=== PATIENT | female | born 1985 | race Two or more races ===

== ENCOUNTER 2024-08-15 12:55 | Inpatient (IN) | payer MEDICAID, OTHER ==
[~2024-08-15] VITALS: Ht 157.5 cm; Wt 61.0 kg
--- NOTE | 2024-08-15 13:13 | ED.PDOC ---
HPI Comments HPI: This is a 39 year old female BIBA presenting to the ED with chief complaint of dizziness and bradycardia. EMS reports that the patient was following up at an oncology clinic due to having recent blood work showing low platelets, however, she had been noted by the clinic to be bradycardic at 45 bpm, calling 911 for assistance. EMS relays that the patient has been experiencing dizziness with associated weakness since yesterday. EMS states that they provided the patient 1mg of Atropine and 500cc's of IV normal saline with her HR now improving to 109 bpm. Patient notes that she is not on chemotherapy and there is no diagnosis of cancer at this time. Patient denies any chest pain, SOB, N/V, numbness, tingling, or syncope. Initial Vitals BP: 144/90 HR: 90 RR: 18 O2 Sat: 98% Temp: 98.8F Past Medical history: Lupus, ITP, thrombocytopenia Past Surgical history: Appendectomy, Back surgery Medications: Prednisone, Nifedipine, Fluoxetine, Pantoprazole Social History: Denies smoking, ETOH, and drug use. Allergies: NKDA HPI: Poor Historian. REVIEW OF SYSTEMS: CONSTITUTIONAL: Denies acute: fever, diaphoresis, chills, HEAD: Denies acute: headache, photophobia Eyes: Denies acute: Double vision, vision loss, eye pain, eye discharge. EARS: Denies acute: tinnitus, hearing loss, ear discharge, ear pain, THROAT: Denies acute: sore throat, swelling, difficulty swallowing , pain with swallowing, change in voice. NECK: Denies acute: neck pain, neck swelling, stiff neck. HEART: Denies acute : chest pain, palpitations, LUNGS: Denies acute: SOB, wheezing, cough, hemoptysis ABDOMEN: Denies acute: abdominal pain, Nausea, Vomiting, diarrhea, melena , hematemesis, hematochezia SKIN: Denies acute: rash, redness, lesions, itchiness. EXTREMITIES: Denies acute: calf pain, numbness, tingling, weakness, denies pain in extremity. Denies acute: Low back pain. Neuro: Denies acute: focal neurological deficit, motor or sensory focal neurological deficit, tremors, seizure like activity, confusion, change in mental status, loss of bowel or bladder function, cauda equina like symptoms. : Denies acute: dysuria, hematuria, flank pain, increase in urinary frequency. PSYCH: Denies acute: hallucination, suicidal ideation, homicidal ideation. FEMALE: Denies acute: abnormal vaginal bleeding, foul odor, unusual discharge. PHYSICAL EXAM: General: ---no-----acute distress, awake and alert. Head: normocephalic, atraumatic. Neck: supple, trachea is midline, no swelling. Throat: Normal phonation. Eyes:, no erythema, no purulent discharge, no proptosis, no icterus. Heart: Slight regular tachycardia after atropine was given by EMS, no significant murmur appreciated. Lungs: no apparent respiratory distress, Able to speak in full sentences. No wheezing, no rhonchi, no crackles. No stridors Clear to auscultation bilaterally. Abdomen: non tender to palpation, non distended, soft, no guarding, no rebound, + bowel sounds. Neuro: Awake, Alert, oriented to name, self, situation, follows commands GCS=15. Speech is normal. Skin: no petechia, no purpura, no cyanosis, non-pale, not jaundice. Lower extremities: --no - Pitting edema no deformity, no focal swelling, no calf TTP. Makes eye contact. moves all four extremities. Face: no apparent facial droop. ED COURSE: DISCLAIMER: This medical document was created using an electronic medical record system with voice recognition software and computerized dictation system. Although this document has been carefully reviewed, there might still be some phonetic and typographical errors. Occasional wrong-word or "sound-alike" substitutions may have occurred due to the inherent limitations of voice recognition software. These areas are purely typographical due to imperfections of the software programs and do not reflect any compromise in the patient's medical care. Please read the chart carefully and recognize, using context, where these substitutions have occurred. Time Seen by MD: 13:10 Reviewed Notes: Medications, Allergies Allergies: Coded Allergies: NO KNOWN ALLERGIES (Unverified , 08/15/24) Home Meds Reported Medications Elagolix Sodium (Orilissa) 150 Mg Tab, PO 08/15/24 Fluoxetine Hcl (Fluoxetine Hcl) 10 Mg Tab, 1 CAP PO DAILY 08/15/24 Pantoprazole Sodium Sesquihydr (Pantoprazole Sodium Dr) 40 Mg Tab, 1 TAB PO DAILY 08/15/24 Prednisone (Prednisone) 20 Mg Tab, 2 PO BID 08/15/24 Information Source: Patient, Emergency Med Personnel Mode of Arrival: EMS Was a procedure done? Was a procedure done?: No X-Ray, Labs, Meds, VS Vital Signs Date Time Temp Pulse Resp B/P (MAP) Pulse Ox O2 Delivery O2 Flow Rate FiO2 08/15/24 16:49 98.4 59 16 128/76 (93) 100 98.4 08/15/24 16:43 71 19 97 Room Air* 0 21 08/15/24 13:08 103 08/15/24 13:05 98.8 90 18 144/90 (108) 98 98.8 Lab Test 08/15/24 16:13 08/15/24 14:20 08/15/24 14:09 08/15/24 13:13 Range/Units Troponin I High Sensitivity 9 8 6 </=34 ng/L Urine Color Colorless Yellow Urine Clarity Clear Clear Urine pH 6.5 5.0-9.0 Urine Specific [place] 1.003 1.001-1.035 Urine Protein Negative Negative Urine Ketones Negative Negative Urine Blood Negative Negative /uL Urine Nitrite Negative Negative Urine Bilirubin Negative Negative Urine Urobilinogen Normal Negative mg/dL Urine Leukocyte Esterase Negative Negative /uL Urine RBC 2 0 - 4 /hpf Urine Microscopic WBC < 1 0-5 /HPF Urine Squamous Epithelial Cells Few <5 /hpf Urine Bacteria Mod H None Seen /hpf Urine Glucose Normal Normal mg/dL Urine Test Negative Negative White Blood Count 8.5 4.4-10.8 10^3/uL Red Blood Count 4.97 4.0-5.20 10^6/uL Hemoglobin 14.1 12.2-16.2 g/dL Hematocrit 39.7 36.0-46.0 % Mean Corpuscular Volume 79.9 L 80.0-100.0 fL Mean Corpuscular Hemoglobin 28.5 28.0-32.0 pg Mean Corpuscular Hemoglobin Concent 35.7 32.0-36.0 g/dL Red Cell Distribution Width 14.0 11.8-14.3 % Platelet Count 37 L 140-450 10^3/uL Mean Platelet Volume 9.5 6.9-10.8 fL Neutrophils (%) (Auto) 78.1 37.0-80.0 % Lymphocytes (%) (Auto) 13.5 10.0-50.0 % Monocytes (%) (Auto) 6.6 0.0-12.0 % Eosinophils (%) (Auto) 1.3 0.0-7.0 % Basophils (%) (Auto) 0.5 0.0-2.0 % Neutrophils # (Auto) 6.6 1.6-8.6 10 ^3/uL Lymphocytes # (Auto) 1.1 0.4-5.4 10 ^3/uL Monocytes # (Auto) 0.6 0-1.3 10 ^3/uL Eosinophils # (Auto) 0.1 0-0.8 10 ^3/uL Basophils # (Auto) 0 0-0.2 10 ^3/uL Nucleated Red Blood Cells 0.1 % Platelet Estimate Decreased Microcytosis Slight Sodium Level 142 136-145 mmol/L Potassium Level 3.8 3.5-5.1 mmol/L Chloride Level 107 98-107 mmol/L Carbon Dioxide Level 26 20-31 mmol/L Anion Gap 9 5-15 Blood Urea Nitrogen < 5 L 9-23 mg/dL Creatinine 0.60 0.550-1.02 mg/dL Glomerular Filtration Rate Calc 116 >90 mL/min BUN/Creatinine Ratio 8.3 L 10.0-20.0 Serum Glucose 87 74-106 mg/dL Lactic Acid Level 0.9 0.4-2.0 mmol/L Calcium Level 8.7 8.7-10.4 mg/dL Total Bilirubin 0.5 0.2-1.0 mg/dL Aspartate Amino Transferase (AST) 31 13-40 U/L Alanine Aminotransferase (ALT) 33 7-40 U/L Alkaline Phosphatase 87 46-116 U/L Total Protein 5.8 5.7-8.2 g/dL Albumin 3.8 3.2-4.8 g/dL Current Medications Medications (Trade) Dose Ordered Sig/Tyler Route Start Time Stop Time Status Last Admin Sodium Chloride 1,000 ml @ 1,000 mls/hr Q1H ONCE IV 08/15/24 13:15 08/15/24 14:14 DC 08/15/24 16:43 [facility] [id number] [place] [id number] Ph: [phone] DIAGNOSTIC IMAGING Diagnostic Imaging Report : [id number] Signed PATIENT: SUZY MARTINES ACCT: [id number] UNIT: [id number] : 1985 LOC: ER ROOM / BED: / AGE / SEX: 39 / F ADM STATUS: REG ER SERVICE 1303 ORDERING PHYSICIAN: CLEVE BERRIOS DO PROCEDURE(s): CXRP - CHEST PORTABLE REASON: cliff/dizzy/weak ORDER NUMBER(s): [id number], ACCESSION NUMBER(s): [id number] INDICATION: cliff/dizzy/weak TECHNIQUE: Frontal view of the chest. COMPARISON: None FINDINGS: . The heart and mediastinal contours are grossly unremarkable. There is no evidence of pleural disease. The lungs are clear. The bony structures of the chest are intact without fracture. IMPRESSION: 1. No evidence of acute disease. ATED BY: FLY WALLIS MD DICTATED DATE/TIME: 08/15/241511 SIGNED BY: FLY WALLIS MD SIGNED DATE/TIME: 08/15/24 151 CC: Time of 1ST Reevaluation: 14:10 Reevaluation 1ST: Unchanged Patient Education/Counseling: Diagnosis, Treatment Family Education/Counseling: No Family Present Departure 1 Departure Time of Disposition: 15:09 Impression: Primary Impression: Bradycardia Disposition: ADMITTED INPATIENT Admit to: [facility] Condition: Stable Discharged With: Self Critical Care Note Critical Care Time?: No Heart Score Heart Score: Heart Score Response (Comments) Value History Moderate Suspicious 1 EKG Normal 0 Age <45 0 Risk Factors No known risk factors 0 Troponin Normal limit 0 Total 1 I personally scribed for CLEVE BERRIOS DO ([email or web address]) on 08/15/24 at 13:13. Electronically submitted by Cordell Hairston ([email or web address]). I personally scribed for CLEVE BERRIOS DO ([email or web address]) on 08/15/24 at 14:38. Electronically submitted by Cordell Hairston ([email or web address]). I personally scribed for CLEVE BERRIOS DO ([email or web address]) on 08/15/24 at 20:33. Electronically submitted by Cordell Hairston ([email or web address]). CLEVE BERRIOS DO Aug 15, 2024 13:13
[2024-08-15 13:31] LABS: Mean Corpuscular Volume 79.9 fL (80.0-100.0)
[2024-08-15 13:33] LABS: Hematocrit 39.7 % (36.0-46.0); Hemoglobin 14.1 g/dL (12.2-16.2); Mean Corpuscular Hemoglobin 28.5 pg (28.0-32.0); Nucleated Red Blood Cells % 0.1 %
[2024-08-15 13:46] LABS: Alanine Aminotransferase 33 U/L (7-40); Albumin 3.8 g/dL (3.2-4.8); Alkaline Phosphatase 87 U/L (46-116); Anion Gap 9 (5-15); BUN/Creatinine Ratio 8.3 (10.0-20.0); Bilirubin, Total 0.5 mg/dL (0.2-1.0); Blood Urea Nitrogen < 5 mg/dL (9-23); Calcium 8.7 mg/dL (8.7-10.4); Carbon Dioxide 26 mmol/L (20-31); Chloride 107 mmol/L (98-107); Glucose 87 mg/dL (74-106); Potassium 3.8 mmol/L (3.5-5.1); Sodium 142 mmol/L (136-145); Total Protein 5.8 g/dL (5.7-8.2)
[2024-08-15 14:51] LABS: Urine Protein, UAD Negative (Negative)
--- NOTE | 2024-08-15 15:15 | DVH ---
INDICATION: cliff/dizzy/weak TECHNIQUE: Frontal view of the chest. COMPARISON: None FINDINGS: . The heart and mediastinal contours are grossly unremarkable. There is no evidence of pleural disea se. The lungs are clear. The bony structures of the chest are intact without fracture. IMPRESSION: 1. No evidence of acute disease.
[2024-08-15 16:43] VITALS: PULSE 71; RESP 19; O2SAT 97
[2024-08-15] MEDS: SODIUM CHLORIDE 0.9% 1,000 ML IV ONE (16:43)
[2024-08-15] MEDS ORDERED: NITROGLYCERIN 0.4 MG SL TAB SL PRN (17:30)
[2024-08-15] MEDS ORDERED: MORPHINE SULFATE INJ 2 MG/ml SYRG IV PRN (17:30)
[2024-08-15] MEDS ORDERED: FLUO10TA18 PO (17:38)
[2024-08-15] MEDS ORDERED: PANT40TA57 PO (17:38)
[2024-08-15] MEDS ORDERED: ELAG150T PO (17:38)
[2024-08-15] MEDS ORDERED: PRED20TA2 PO (17:38)
--- NOTE | 2024-08-15 17:44 | DVHHP2 ---
History of Present Illness Reason for Visit: Dizziness with weakness History of Present Illness Nubia Robbins is a 39-year-old female with past medical history of lupus, ITP, appendectomy, back surgery, and who presents to the ED with dizziness and weakness x2 days. Patient states that the time she was driving. She also reports that she has been compliant with her medications. She reports that she does not use illicit drugs, uses tobacco, or drinks alcohol. Patient denies chest pain, shortness of breath, fever, chills, lightheadedness, urinary symptoms, abdominal pain, nausea, vomiting, diarrhea, recent sick contacts, recent travels, recent ingestion of spoiled food, or recent trauma or injury. Past Medical History Lupus ITP Past Surgical History: Appendectomy, , Other (Back surgery) Family History: Hypertension, Other (Dad had [place] and . Mom with hypertension.) Smoke: No ALCOHOL: none Drugs: None Lives: with Family Domestic Violence: Neg Review of Systems Constitutional: Yes: Weakness, Other (Dizziness) Allergies: Coded Allergies: NO KNOWN ALLERGIES (Unverified , 08/15/24) Medications Current Medications Medications Dose Ordered Sig/Tyler Route Start Time Stop Time Status Last Admin Dose Admin Ondansetron HCl 4 mg Q4HP PRN IV 08/15/24 17:30 UNV Acetaminophen 650 mg Q6HP PRN PO 08/15/24 17:30 UNV Nitroglycerin 0.4 mg Q5MINP PRN SL 08/15/24 17:30 UNV Morphine Sulfate 2 mg Q30M PRN IV 08/15/24 17:30 UNV Exam Vital Signs Vital Signs Date Time Temp Pulse Resp B/P (MAP) Pulse Ox O2 Delivery O2 Flow Rate FiO2 08/15/24 16:49 98.4 59 16 128/76 (93) 100 98.4 08/15/24 16:43 Room Air* 0 21 General Appearance: Alert, Oriented X3, Cooperative, No acute distress HEENT: Atraumatic, PERRLA, EOMI, Mucous membr. moist/pink Respiratory: Normal air movement Cardiovascular: Normal S1, No murmurs Abdominal: Normal bowel sounds, Soft, No tenderness Extremities: No clubbing, No cyanosis, No edema, Normal pulses Skin: No significant lesion Neuro: Normal speech, Strength at 5/5 X4 ext, Normal tone, Sensation intact Psych/Mental Status: Mental status NL, Mood NL Labs/Xrays Labs Test 08/15/24 16:13 08/15/24 14:20 08/15/24 13:13 Range/Units Troponin I High Sensitivity 9 </=34 ng/L Urine Color Colorless Yellow Urine Clarity Clear Clear Urine pH 6.5 5.0-9.0 Urine Specific [place] 1.003 1.001-1.035 Urine Protein Negative Negative Urine Ketones Negative Negative Urine Blood Negative Negative /uL Urine Nitrite Negative Negative Urine Bilirubin Negative Negative Urine Urobilinogen Normal Negative mg/dL Urine Leukocyte Esterase Negative Negative /uL Urine RBC 2 0 - 4 /hpf Urine Microscopic WBC < 1 0-5 /HPF Urine Squamous Epithelial Cells Few <5 /hpf Urine Bacteria Mod H None Seen /hpf Urine Glucose Normal Normal mg/dL Urine Test Negative Negative White Blood Count 8.5 4.4-10.8 10^3/uL Red Blood Count 4.97 4.0-5.20 10^6/uL Hemoglobin 14.1 12.2-16.2 g/dL Hematocrit 39.7 36.0-46.0 % Mean Corpuscular Volume 79.9 L 80.0-100.0 fL Mean Corpuscular Hemoglobin 28.5 28.0-32.0 pg Mean Corpuscular Hemoglobin Concent 35.7 32.0-36.0 g/dL Red Cell Distribution Width 14.0 11.8-14.3 % Platelet Count 37 L 140-450 10^3/uL Mean Platelet Volume 9.5 6.9-10.8 fL Neutrophils (%) (Auto) 78.1 37.0-80.0 % Lymphocytes (%) (Auto) 13.5 10.0-50.0 % Monocytes (%) (Auto) 6.6 0.0-12.0 % Eosinophils (%) (Auto) 1.3 0.0-7.0 % Basophils (%) (Auto) 0.5 0.0-2.0 % Neutrophils # (Auto) 6.6 1.6-8.6 10 ^3/uL Lymphocytes # (Auto) 1.1 0.4-5.4 10 ^3/uL Monocytes # (Auto) 0.6 0-1.3 10 ^3/uL Eosinophils # (Auto) 0.1 0-0.8 10 ^3/uL Basophils # (Auto) 0 0-0.2 10 ^3/uL Nucleated Red Blood Cells 0.1 % Platelet Estimate Decreased Microcytosis Slight Sodium Level 142 136-145 mmol/L Potassium Level 3.8 3.5-5.1 mmol/L Chloride Level 107 98-107 mmol/L Carbon Dioxide Level 26 20-31 mmol/L Anion Gap 9 5-15 Blood Urea Nitrogen < 5 L 9-23 mg/dL Creatinine 0.60 0.550-1.02 mg/dL Glomerular Filtration Rate Calc 116 >90 mL/min BUN/Creatinine Ratio 8.3 L 10.0-20.0 Serum Glucose 87 74-106 mg/dL Lactic Acid Level 0.9 0.4-2.0 mmol/L Calcium Level 8.7 8.7-10.4 mg/dL Total Bilirubin 0.5 0.2-1.0 mg/dL Aspartate Amino Transferase (AST) 31 13-40 U/L Alanine Aminotransferase (ALT) 33 7-40 U/L Alkaline Phosphatase 87 46-116 U/L Total Protein 5.8 5.7-8.2 g/dL Albumin 3.8 3.2-4.8 g/dL INDICATION: cliff/dizzy/weak TECHNIQUE: Frontal view of the chest. COMPARISON: None FINDINGS: . The heart and mediastinal contours are grossly unremarkable. There is no evidence of pleural disease. The lungs are clear. The bony structures of the chest are intact without fracture. IMPRESSION: 1. No evidence of acute disease. SEPSIS Sepsis Screen Date sepsis recognized/suspect: Aug 15, 2024 Time Sepsis recognized/suspect: 1305 Recent Procedure: No On Antibiotic Therapy: No Respiratory Rate >20: No Heart Rate >90: No Temp<36 C (96.8 F) or >38.3 C: No SBP <90 or MAP <65 mmHG: No New Acute Mental Status Change: No Is the patient on CPAP, BIPAP,: No Physician Orders Traffic Personnel Supervisor (08/15/24 ) Chest Portable (08/15/24 13:03) Electrocardigram (08/15/24 13:03) Head Without Contrast (08/15/24 17:24) Echo 2d Mode Cardiac Dop (08/15/24 17:24) Orthostatic Vital Signs (08/15/24 17:24) Drug Screen (08/15/24 17:24) Admit (08/15/24 17:24) Allergies (08/15/24:24) Code Status (08/15/24:24) Ondansetron Hcl (Zofran) (08/15/24 17:30) Complete Blood Count (08/16/24 04:00) Comprehensive Metabolic Panel (08/16/24 04:00) Cardiac Diet-2gna,Lofat,Lochol (08/15/24 Dinner) Acetaminophen Tablet (Tylenol Tablet) (08/15/24 17:30) Sequential Compression Device (08/15/24 ) Nitroglycerin Sublingual (Ntrostat Subli (08/15/24 17:30) Morphine Sulfate Injection (08/15/24:30) Stat Ekg For Chest Pain (08/15/24:) Notify Of Changes From Base (08/15/24:) Fur Liner For 24 Hours (08/15/24:24) Emergency Dysrhythmia Protocol (08/15/24:) Rhythm Strips Once Every Shift (08/15/24:24) Oxygen By Nasal Cannula (08/15/24:24) Fluoxetine Capsule (Prozac Capsule) (08/16/24 10:00) Pantoprazole Tablet (Protonix Tablet) (08/16/24 10:00) Prednisone Tablet (08/15/24 22:00) Vital Signs Date Time Temp Pulse Resp B/P (MAP) Pulse Ox O2 Delivery O2 Flow Rate FiO2 08/15/24 16:49 98.4 59 16 128/76 (93) 100 98.4 08/15/24 16:43 71 19 97 Room Air* 0 21 08/15/24 13:08 103 08/15/24 13:05 98.8 90 18 144/90 (108) 98 98.8 Laboratory Tests Test 08/15/24 13:13 Lactic Acid Level 0.9 mmol/L (0.4-2.0) White Blood Count 8.5 10^3/uL (4.4-10.8) Medications Medications Dose Ordered Sig/Tyler Route Start Time Stop Time Status Last Admin Dose Admin Sodium Chloride 1,000 ml @ 1,000 mls/hr Q1H ONCE IV 08/15/24 13:15 08/15/24 14:14 DC 08/15/24 16:43 1,000 MLS/HR Assessment/Plan Assessment/Plan Assessment Autonomic imbalance Sinus bradycardia History of lupus History of ITP History of appendectomy History of back surgery History of Plan Admit to tele NS 1 L given in ED RBC morphology Troponin noted EKG HCG noted Chest x-ray noted UA Troponin Lactic level Echo ordered CT head ordered Orthostatics UDS Diet Home medications reconciled DVT prophylaxis-not indicated patient ambulating PUD prophylaxis-PPIs Discussed plan of care with patient and nurse [id number] Preventive counseling healthy eating habits, physical activity, and regular checkups Plan discussed with: Patient My Orders Orders - ANDREWKATHI KNOWLEDGE ARCHITECT Procedure Category Date Status Time Head Without Contrast CT 08/15/24 Logged 17:24 Echo 2d Mode Cardiac US 08/15/24 Logged DOP 17:24 Orthostatic Vital ORDERS 08/15/24 Transmitted Signs 17:24 Drug Screen LAB 08/15/24 Logged 17:24 Admit ADMIT 08/15/24 Transmitted 17:24 Allergies MYRANDA 08/15/24 In Process 17:24 Code Status CODE 08/15/24 Transmitted 17:24 Ondansetron Hcl PHA 08/15/24 Logged (Zofran) 17:30 Complete Blood Count LAB 08/16/24 Verified 04:00 Comprehensive LAB 08/16/24 Verified Metabolic Panel 04:00 Cardiac DIET 08/15/24 Transmitted Diet-2gna,Lofat,Lochol Dinner Acetaminophen Tablet PHA 08/15/24 Logged (Tylenol Tablet) 17:30 Sequential MYRANDA 08/15/24 In Process Compression Device Nitroglycerin PHA 08/15/24 Logged Sublingual (Ntrostat 17:30 Morphine Sulfate PHA 08/15/24 Logged Injection 17:30 Stat Ekg For Chest [facility] 08/15/24 In Process Pain 17:24 Notify Of Changes [facility] 08/15/24 In Process From Base 17:24 Fur Liner For [facility] 08/15/24 In Process 24 Hours 17:24 Emergency Dysrhythmia [facility] 08/15/24 In Process Protocol 17:24 Rhythm Strips Once [facility] 08/15/24 In Process Every Shift 17:24 Oxygen By Nasal RT 08/15/24 Transmitted Cannula 17:24 Fluoxetine Capsule PHA 08/16/24 Transmitted (Prozac Capsule) 10:00 Pantoprazole Tablet PHA 08/16/24 Transmitted (Protonix Tablet) 10:00 Prednisone Tablet PHA 08/15/24 Transmitted 22:00 Date of Service: Aug 15, 2024 Billing Provider: KATHI MORALES Common Visit Codes: 37162-CHOAQIZ INP/OBS CARE (HIGH) Secondary Visit Codes: [id number] COUNSELING IND KATHI MORALES Aug 15, 2024 17:44
--- NOTE | 2024-08-15 18:14 | DVH ---
EXAM: CT HEAD WITHOUT CONTRAST INDICATION: dizziness TECHNIQUE: CT of the head without intravenous contrast. Radiation Dose : 1. Head: CT Dose: CTDI volume is 57.3 mGy. Dose-length product is 1044 mGy*cm The dose indicators for CT are the volume Computed Tomography (CT) Dose Index (CTDIvol) and the Dose Length Product (DLP), and are measured in units of mGy and mGy-cm, respectively. These indicators are not patient dose, but values generated from the CT scanner acquisition factors. The report includes radiation exposure data for exposures received during this examination. COMPARISON: None FINDINGS: There is no evidence of acute intracranial hemorrhage, extra-axial collection, mass effect, midline s hift, herniation or hydrocephalus. The ventricles, sulci and cisterns are age appropriate. The ambriz-white differentiation is intact. Patchy periventricular and subcortical white matter hypoattenuation is nonspecific but may be related to small vessel ischemic disease. The visualized paranasal sinuses and mastoid air cells are clear. The surrounding soft tissues and osseous structures are unremarkable. IMPRESSION: 1. No acute intracranial abnormality. Radiation optimization: All CT scans at this facility use at least one of these dose optimization samson hniques: automated exposure control mA and/or kV adjustment per patient size (includes targeted exam s where dose is matched to clinical indication) or iterative reconstruction.
[2024-08-15] MEDS: ACETAMINOPHEN 325 MG TAB PO PRN (20:34)
[2024-08-15] MEDS: ONDANSETRON HCL 4 MG/2 ML VIAL IV PRN (20:34)
[2024-08-15] MEDS: predniSONE 20 MG TAB PO SCH (22:37)
[2024-08-15 23:06] LABS: Amphetamine Screen, Urine Neg (NEGATIVE); Barbiturate Scree,Urine Neg (NEGATIVE); Benzodiazephine Screen, Urine Neg (NEGATIVE); Cannabinoid Screen, Urine Neg (NEGATIVE); Cocaine Screen, Urine Neg (NEGATIVE); Opiate Scree,Urine Neg (NEGATIVE); Phencyclidine Screen, Urine Neg (NEGATIVE)
[2024-08-16] VITALS (9 sets, daily range): BP systolic 112–128; BP diastolic 50–83; PULSE 50–88; RESP 16–18; TEMP 98–98.3; O2SAT 94–100
[2024-08-16 06:06] LABS: Hematocrit 38.1 % (36.0-46.0); Hemoglobin 13.4 g/dL (12.2-16.2); Nucleated Red Blood Cells % 0.0 %
[2024-08-16 06:10] LABS: Alanine Aminotransferase 34 U/L (7-40); Alkaline Phosphatase 90 U/L (46-116); Anion Gap 9 (5-15); Bilirubin, Total 0.5 mg/dL (0.2-1.0); Carbon Dioxide 24 mmol/L (20-31); Mean Corpuscular Hemoglobin 28.3 pg (28.0-32.0); Mean Corpuscular Volume 80.5 fL (80.0-100.0); Potassium 4.2 mmol/L (3.5-5.1); Sodium 141 mmol/L (136-145)
[2024-08-16 06:14] LABS: BUN/Creatinine Ratio 8.8 (10.0-20.0); Blood Urea Nitrogen < 5 mg/dL (9-23); Calcium 8.4 mg/dL (8.7-10.4); Chloride 108 mmol/L (98-107); Glucose 127 mg/dL (74-106); Total Protein 5.7 g/dL (5.7-8.2)
[2024-08-16 06:50] LABS: Albumin 3.8 g/dL (3.2-4.8)
--- NOTE | 2024-08-16 07:18 | ECG ---
[facility] Test Date: 2024-08-15 Test Time: 13:08:19 Pat Name: SUZY MARTINES Department: ED Room: 0296T A Gender: F Orthoptist: KANE : 1985 Requested By: CLEVE BERRIOS Order Number: [id number] Reading MD: Willem De Dios Measurements Intervals [place] Rate: 103 P: 47 NE: 144 QRS: 78 QRSD: 99 T: -48 QT: 338 QTc: 443 Interpretive Statements Sinus tachycardia Nonspecific repol abnormality, diffuse leads Baseline wander in lead(s) V6 Electronically Signed On 08-19-2024 18:30:36 PDT by Willem De Dios Please click the below link to view image of tracing.
[2024-08-16] MEDS: PANTOPRAZOLE 40 MG TAB PO SCH (07:52)
--- NOTE | 2024-08-16 15:38 | DVHPN2 ---
Subjective Patient admitted for apparent bradycardia overnight. Currently her heart rate in the 50s to 70s range. Patient remains completely asymptomatic. 2D echocardiogram is pending. Changes from previous H/P or p: No Changes Objective Vitals Vital Signs Date Time Temp Pulse Resp B/P (MAP) Pulse Ox O2 Delivery O2 Flow Rate FiO2 08/16/24 13:00 98.1 58 18 128/62 (84) 100 98.1 08/16/24 08:00 Room Air* 0 21 Intake/Output Intake and Output 08/16/24 07:00 Intake Total 1400 ml Output Total 0 ml Balance 1400 ml Intake Oral 400 ml IV Total 1000 ml Output Urine Total 0 ml Exam Alert awake oriented x3. Comfortable in bed without distress. HEENT neck supple no JVD. Heart regular rate and rhythm S1-S2. No murmurs. Lungs fair air movement without rales wheezes. Abdomen soft nontender positive bowel sounds. Extremities no edema positive pulses. Neurologic no focal deficits. Medications Current Medications Medications Dose Ordered Sig/Tyler Route Start Time Stop Time Status Last Admin Dose Admin Ondansetron HCl 4 mg Q4HP PRN IV 08/15/24 17:30 08/15/24 20:34 4 MG Acetaminophen 650 mg Q6HP PRN PO 08/15/24 17:30 08/15/24 20:34 650 MG Nitroglycerin 0.4 mg Q5MINP PRN SL 08/15/24 17:30 Morphine Sulfate 2 mg Q30M PRN IV 08/15/24 17:30 Fluoxetine HCl 10 mg DAILY PO 08/16/24 10:00 08/16/24 08:41 10 MG Pantoprazole Sodium 40 mg DAILY@0700 PO 08/16/24 07:00 08/16/24 07:52 40 MG Prednisone 20 mg BID PO 08/15/24 22:00 08/16/24 08:41 20 MG Hydroxychloroquine Sulfate 200 mg DAILY PO 08/15/24 17:45 08/16/24 08:41 200 MG Laboratory Results Laboratory Tests 08/16/24 04:30 Chemistry Test 08/16/24 04:30 Albumin 3.8 g/dL (3.2-4.8) Calcium Level 8.4 mg/dL (8.7-10.4) L Total Protein 5.7 g/dL (5.7-8.2) LFT Test 08/16/24 04:30 Alanine Aminotransferase (ALT) 34 U/L (7-40) Alkaline Phosphatase 90 U/L (46-116) Aspartate Amino Transferase (AST) 35 U/L (13-40) Total Bilirubin 0.5 mg/dL (0.2-1.0) HgA1c, TSH Test 08/16/24 04:30 Thyroid Stimulating Hormone (TSH) 0.45 uIU/mL (0.55-4.78) L Urinalysis Test 08/15/24 14:20 Urine Color Colorless (Yellow) Urine Clarity Clear (Clear) Urine pH 6.5 (5.0-9.0) Urine Specific [place] 1.003 (1.001-1.035) Urine Protein Negative (Negative) Urine Ketones Negative (Negative) Urine Blood Negative /uL (Negative) Urine Nitrite Negative (Negative) Urine Bilirubin Negative (Negative) Urine Urobilinogen Normal mg/dL (Negative) Urine Leukocyte Esterase Negative /uL (Negative) Urine RBC 2 /hpf (0 - 4) Urine Microscopic WBC < 1 /HPF (0-5) Urine Squamous Epithelial Cells Few /hpf (<5) Urine Bacteria Mod /hpf (None Seen) H Urine Glucose Normal mg/dL (Normal) Urine Test Negative (Negative) Microbiology Microbiology Date/Time Source Procedure Growth Status 08/16/24 05:45 Nose MRSA Screen - Final Complete Assessment/Plan Assessment/Plan We will check her thyroid panel. Patient does have history of lupus could cause bradycardia. However overnight her telemetry does not show any significant bradycardia and also patient does not have any symptoms. We will monitor overnight and if she remains stable and echocardiogram is unremarkable consider discharge home tomorrow. Discussed with the patient and nurse. Plan discussed with: Patient, Other Problem List: (1) Bradycardia Date of Service: Aug 16, 2024 Billing Provider: KRISTINA MAST MD Common Visit Codes: [id number] INP/OBS CARE(MOD) KRISTINA MAST MD Aug 16, 2024 15:38
--- NOTE | 2024-08-16 17:33 | DVHSR ---
APPROVED REPORT EXAM: Two-dimensional and M-mode echocardiogram with Doppler and color Doppler. Blood Pressure: 118/50 mmHg INDICATION Dizziness and Vertigo RISK FACTORS Height: 5'2", Weight: 131 DIMENSIONS LVDd4.8 (3.8-5.7cm)LA (2D)3.4 (1.9-4.0cm)Aortic Root2.6 (2.0-3.7cm) LVDs2.9 (2.5-4.0cm)LA (MM) (1.9-4.0cm)Aortic Cusp Exc1.6 (1.5-2.0cm) EF (%) 70.0 (55-70%)Rt. Atrium3.7 (1.9-4.0cm)Asc. Aorta2.9 cm IVSd0.8 (0.7-1.1cm)RV (D) (1.8-2.4cm) PWd0.7 (0.7-1.1cm) Mitral Valve MitralMitral Stenosis E wave0.85m/sMV Mean GR.mmHg A wave0.94m/sMV Peak GR.mmHg E/A ratio0.92D MVAcm2 DECEL [id number] 1/2 Timems Aortic Valve Aortic ValveAortic Stenosis V11.54m/Erasmo Mean GR.6mmHg V21.81m/Erasmo Peak GR.13mmHg LVOT Diameter2.1 (1.8-2.4cm)Doppler AVA2.95cm2 Pulmonic Valve V20.99m/s Conclusion Left ventricle: Left ventricle was normal-sized. LVEF was 75%. There was no wall motion abnormalit y. Diastolic function was considered normal for age. Right ventricle was normal-sized with normal systolic function. Both atria were normal-sized. Aortic valve was trileaflet. There was no aortic insufficiency/stenosis. There was no tricuspid/sage ral regurgitation. Pulmonary valve did not reveal any insufficiency. As there was no good tricuspid regurgitation jet, right ventricular systolic pressure could not be es timated. There was no pericardial effusion. There was no echocardiographic evidence for pulmonary hypertensio n.
[2024-08-17 05:00] VITALS: BP 131/80; PULSE 58; RESP 18; TEMP 98.4; O2SAT 95
[2024-08-17 08:00] VITALS: PULSE 54
[2024-08-17 09:00] VITALS: BP 135/88; PULSE 72; RESP 20; TEMP 98.8; O2SAT 97
--- NOTE | 2024-08-17 12:24 | DVHDS2 ---
Discharge Summary Date of Admission Aug 15, 2024 at 17:24 Date of Discharge: Aug 17, 2024 Labs/Diagnostic Data: Laboratory Results Test 08/16/24 04:30 08/15/24 16:13 08/15/24 14:20 08/15/24 13:13 White Blood Count 10.8 10^3/uL (4.4-10.8) Red Blood Count 4.73 10^6/uL (4.0-5.20) Hemoglobin 13.4 g/dL (12.2-16.2) Hematocrit 38.1 % (36.0-46.0) Mean Corpuscular Volume 80.5 fL (80.0-100.0) Mean Corpuscular Hemoglobin 28.3 pg (28.0-32.0) Mean Corpuscular Hemoglobin Concent 35.2 g/dL (32.0-36.0) Red Cell Distribution Width 13.9 % (11.8-14.3) Platelet Count 40 10^3/uL (140-450) Mean Platelet Volume 9.8 fL (6.9-10.8) Neutrophils (%) (Auto) 89.0 % (37.0-80.0) Lymphocytes (%) (Auto) 8.1 % (10.0-50.0) Monocytes (%) (Auto) 2.5 % (0.0-12.0) Eosinophils (%) (Auto) 0.2 % (0.0-7.0) Basophils (%) (Auto) 0.2 % (0.0-2.0) Neutrophils # (Auto) 9.6 10 ^3/uL (1.6-8.6) Lymphocytes # (Auto) 0.9 10 ^3/uL (0.4-5.4) Monocytes # (Auto) 0.3 10 ^3/uL (0-1.3) Eosinophils # (Auto) 0 10 ^3/uL (0-0.8) Basophils # (Auto) 0 10 ^3/uL (0-0.2) Nucleated Red Blood Cells 0.0 % Sodium Level 141 mmol/L (136-145) Potassium Level 4.2 mmol/L (3.5-5.1) Chloride Level 108 mmol/L (98-107) Carbon Dioxide Level 24 mmol/L (20-31) Anion Gap 9 (5-15) Blood Urea Nitrogen < 5 mg/dL (9-23) Creatinine 0.57 mg/dL (0.550-1.02) Glomerular Filtration Rate Calc 118 mL/min (>90) BUN/Creatinine Ratio 8.8 (10.0-20.0) Serum Glucose 127 mg/dL (74-106) Calcium Level 8.4 mg/dL (8.7-10.4) Total Bilirubin 0.5 mg/dL (0.2-1.0) Aspartate Amino Transferase (AST) 35 U/L (13-40) Alanine Aminotransferase (ALT) 34 U/L (7-40) Alkaline Phosphatase 90 U/L (46-116) Total Protein 5.7 g/dL (5.7-8.2) Albumin 3.8 g/dL (3.2-4.8) Thyroid Stimulating Hormone (TSH) 0.45 uIU/mL (0.55-4.78) Free Thyroxine (T4) Calculated 0.94 ng/dL (0.89-1.76) Troponin I High Sensitivity 9 ng/L (</=34) Urine Color Colorless (Yellow) Urine Clarity Clear (Clear) Urine pH 6.5 (5.0-9.0) Urine Specific Howe 1.003 (1.001-1.035) Urine Protein Negative (Negative) Urine Ketones Negative (Negative) Urine Blood Negative /uL (Negative) Urine Nitrite Negative (Negative) Urine Bilirubin Negative (Negative) Urine Urobilinogen Normal mg/dL (Negative) Urine Leukocyte Esterase Negative /uL (Negative) Urine RBC 2 /hpf (0 - 4) Urine Microscopic WBC < 1 /HPF (0-5) Urine Squamous Epithelial Cells Few /hpf (<5) Urine Bacteria Mod /hpf (None Seen) Urine Glucose Normal mg/dL (Normal) Urine Test Negative (Negative) Urine Opiates Screen Neg (NEGATIVE) Urine Fentanyl Screen Neg (NEGATIVE) Urine Barbiturates Screen Neg (NEGATIVE) Urine Phencyclidine Screen Neg (NEGATIVE) Urine Amphetamines Screen Neg (NEGATIVE) Urine Benzodiazepines Screen Neg (NEGATIVE) Urine Cocaine Screen Neg (NEGATIVE) Urine Cannabinoids Screen Neg (NEGATIVE) Platelet Estimate Decreased Microcytosis Slight Lactic Acid Level 0.9 mmol/L (0.4-2.0) Other Laboratory Tests 08/16/24 04:30 Brief Hx & Hospital Course: Nubia Robbins is a 39-year-old female with past medical history of lupus, ITP, appendectomy, back surgery, and who presents to the ED with dizziness and weakness x2 days. Patient states that the time she was driving. She also reports that she has been compliant with her medications. She reports that she does not use illicit drugs, uses tobacco, or drinks alcohol. Patient denies chest pain, shortness of breath, fever, chills, lightheadedness, urinary symptoms, abdominal pain, nausea, vomiting, diarrhea, recent sick contacts, recent travels, recent ingestion of spoiled food, or recent trauma or injury. She is admitted and monitored on telemetry floor and patient's heart rate remained stable in the 50s range. Patient remained asymptomatic throughout the hospital stay. She had an echocardiogram did not reveal any acute pathology. Patient's platelets have been stable. Thyroid function did not reveal any evidence of significant hypothyroidism. Patient has a known history of lupus and ITP. Patient is otherwise clinically stable rest of her workup in the hospitalist remarkable. Therefore it is felt she could be safely discharged home with continued outpatient follow up with her primary care physician. I have talked with the patient regarding her echocardiogram results, lab results, hospital diagnosis, discharge medications discharge instructions and follow-up plan of care. She has verbalized understanding of these and agree with the care plan as outlined. Operations or Procedures APPROVED REPORT EXAM: Two-dimensional and M-mode echocardiogram with Doppler and color Doppler. Blood Pressure: 118/50 mmHg INDICATION Dizziness and Vertigo RISK FACTORS Height: 5'2", Weight: 131 DIMENSIONS LVDd 4.8 (3.8-5.7cm) LA (2D) 3.4 (1.9-4.0cm) Aortic Root 2.6 (2.0- 3.7cm) LVDs 2.9 (2.5-4.0cm) LA (MM) (1.9-4.0cm) Aortic Cusp Exc 1.6 (1.5- 2.0cm) EF (%) 70.0 (55-70%) Rt. Atrium 3.7 (1.9-4.0cm) Asc. Aorta 2.9 cm IVSd 0.8 (0.7-1.1cm) RV (D) (1.8-2.4cm) PWd 0.7 (0.7-1.1cm) Mitral Valve Mitral Mitral Stenosis E wave 0.85m/s MV Mean GR. mmHg A wave 0.94m/s MV Peak GR. mmHg E/A ratio 0.9 2D MVA cm2 DECEL Time 223ms PRESS 1/2 Time ms Aortic Valve Aortic Valve Aortic Stenosis V1 1.54m/s AO Mean GR. 6mmHg V2 1.81m/s AO Peak GR. 13mmHg LVOT Diameter 2.1 (1.8-2.4cm) Doppler HARMONY 2.95cm2 Pulmonic Valve V2 0.99m/s Conclusion Left ventricle: Left ventricle was normal-sized. LVEF was 75%. There was no wall motion abnormality. Diastolic function was considered normal for age. Right ventricle was normal-sized with normal systolic function. Both atria were normal-sized. Aortic valve was trileaflet. There was no aortic insufficiency/stenosis. There was no tricuspid/mitral regurgitation. Pulmonary valve did not reveal any insufficiency. As there was no good tricuspid regurgitation jet, right ventricular systolic pressure could not be estimated. There was no pericardial effusion. There was no echocardiographic evidence for pulmonary hypertension. SIGNED BY: ARTIS FAIR MD SIGNED DATE/TIME: 08/16/24 1991 Condition at Discharge: Stable Final Diagnosis/Problems List Asymptomatic bradycardia, history of lupus and ITP Discharge Disposition: Home Discharge Instruct/Medications Diet: Consistent carbohydrate, Cardiac 2g Na,low cholest Activity: No Restrictions, As Tolerated Follow Up/Referral: Primary care physician after two weeks Continued Medications: Elagolix Sodium (Orilissa) 150 Mg Tab PO Fluoxetine Hcl (Fluoxetine Hcl) 10 Mg Tab 1 CAP PO DAILY Pantoprazole Sodium Sesquihydr (Pantoprazole Sodium Dr) 40 Mg Tab 1 TAB PO DAILY Discontinued Medications: Prednisone (Prednisone) 20 Mg Tab 2 PO BID Scheduled Fluoxetine Hcl (Fluoxetine Hcl), 1 CAP PO DAILY, (Reported) Pantoprazole Sodium Sesquihydr (Pantoprazole Sodium Dr), 1 TAB PO DAILY, (Reported) Miscellaneous Medications Elagolix Sodium (Orilissa), PO, (Reported) Discontinued Medications Prednisone (Prednisone), 2 PO BID, (Reported) Discharge Statement: "Patient was advised to return to the ER or call 911 if any headaches, dizziness, shortness of breath, chest pain, abdominal pain, bleeding, fevers, or worsening of medical condition. Patient was counseled about treatment plan, medications, possible side effects, patientverbalized understanding. All questions were answered to the best of my ability. This discharge took greater then 30 minutes in planning, reviewing documentation, counseling the patient, and discussing with other team members." ASSESSMENT ASSESSMENT Assessment Asymptomatic bradycardia, history of lupus and ITP Date of Service: Aug 17, 2024 Billing Provider: KRISTINA MAST MD Common Visit Codes: 53386-KKM/OBS DISCH DAY <30MIN KRISTINA MAST MD Aug 17, 2024 12:24
[2024-08-17 13:17] VITALS: TEMP 37.1
== END 2024-08-17 14:00 | disposition home or self-care (01) | DRG 201 ==
LOC: ER 12:55 → EDBD 12:55 → OVERFLOW 17:24 → TELE-WESTW 23:56
PROVIDERS: ADMIT Hospitalist; ATTEND Hospitalist
DX: R00.1 Bradycardia, unspecified (principal); Z79.899 Other long term (current) drug therapy; Z90.49 Acquired absence of other specified parts of digestive tract; Z98.891 History of uterine scar from previous surgery; Z82.49 Family history of ischemic heart disease and other diseases of the circulatory system; Z86.2 Personal history of diseases of the blood and blood-forming organs and certain disorders involving the immune mechanism
CPT/HCPCS: 36415; 70450; 71045; 80053; 80307; 81001; 81025; 83605; 84439; 84443; 84484; 85025; 87081; 93005; 93306; 96361; 96374; G0378; J2405